=== PATIENT | female | born 1995 | race Caucasian/White ===

== ENCOUNTER 2017-07-05 12:45 | Emergency (ER) | payer MEDICAID ==
[~2017-07-05] VITALS: Ht 160 cm; Wt 54.0 kg
[~2017-07-05 12:45] MED LIST: ACET-2119 PO; CLIN-80 PO; CLON-528 PO; NITR100C6 PO; PREN1TAB79 PO; VENL-190 PO
[2017-07-05 12:51] VITALS: BP 128/70
[2017-07-05] MEDS ORDERED: VENL150C2 PO (14:06)
[2017-07-05] MEDS ORDERED: NICO-687 TOP (14:06)
== END 2017-07-05 14:16 | disposition home or self-care (01) ==
LOC: ER 12:46
DX: F15.10 Other stimulant abuse, uncomplicated (principal); F12.10 Cannabis abuse, uncomplicated; Z88.1 Allergy status to other antibiotic agents; Z88.0 Allergy status to penicillin; Z88.2 Allergy status to sulfonamides; Z88.8 Allergy status to other drugs, medicaments and biological substances
CPT/HCPCS: 99283

== ENCOUNTER 2024-11-30 11:28 | Emergency (ER) | payer MEDICAID ==
[~2024-11-30] VITALS: Ht 160 cm; Wt 62.6 kg
[~2024-11-30 11:28] MED LIST changes: +CLIN-224 PO; -CLIN-80 PO; -CLON-528 PO; +CLON-850 PO; +VENL150C5 PO
[2024-11-30 11:32] VITALS: BP 115/89; PULSE 122; RESP 16; O2SAT 100
[2024-11-30 13:38] VITALS: TEMP 98.9
== END 2024-11-30 13:41 | disposition left against medical advice (07) ==
LOC: ER 11:29
DX: Z53.21 Procedure and treatment not carried out due to patient leaving prior to being seen by health care provider (principal)